=== PATIENT | male | born 1995 | race Caucasian/White ===

== ENCOUNTER 2021-06-07 20:30 | Emergency (ER) | payer SELFPAY ==
[~2021-06-07] VITALS: Ht 180.3 cm; Wt 95.3 kg
[~2021-06-07 20:30] MED LIST: ACYC800T PO; ALBU8.5H2 IH; CIPR-225 PO; FLUT1DIS26 INH; HSCO125 SL; HYDR-4226 PO; METR500T PO; MMT17NA; MONT5TAB11 PO; ONDAN4ODT SL; SULF-222 PO; SULF1TAB38 PO
[2021-06-07 20:35] VITALS: BP 150/95
[2021-06-07] MEDS ORDERED: LIDOCAINE 1% INJ 20 ML VIAL INJ ONE (20:45)
--- NOTE | 2021-06-07 20:46 | ED Upper Extremity ---
General Stated Complaint: L HAND LAC Source: patient Exam Limitations: no limitations History of Present Illness Date Seen by Provider: Jun 07, 2021 Time Seen by Provider: 20:36 Initial Comments Here with left pinky laceration lateral aspect that is a flap involving the distal phalanx area. States that continue to bleed so he presented for further evaluation. States he was slicing potatoes at the time and his finger on the slicer. Denies other injury. Believes his tetanus is up-to-date 4 years ago. Onset: this evening Severity: mild Pain/Injury Location: left 5th finger Method of Injury: incised Modifying Factors: Improves With Immobilization; Worse With Movement Allergies and Home Medications Allergies Coded Allergies: No Known Drug Allergies (Verified , 03/18/09) Patient Home Medication List Home Medication List Reviewed: Yes Ciprofloxacin HCl (Cipro) 500 Mg Tablet, 500 MG PO BID Prescribed by: DALE TIRADO on 03/09/15 1058 Hydrocodone/Acetaminophen (Hydrocodone/Acetaminophen 5 MG/325 MG TAB) 1 Each Tablet, 1 EACH PO Q4H PRN for PAIN Prescribed by: DALE TIRADO on 03/09/15 1058 Metronidazole (Flagyl) 500 Mg Tablet, 500 MG PO TID Prescribed by: DALE TIRADO on 03/09/15 1058 Sulfamethoxazole/Trimethoprim (Bactrim Ds Tablet) 1 Each Tablet, 1 EACH PO BID, (Reported) Entered as Reported by: BRISEYDA DIANA on 03/09/15 0929 Review of Systems Constitutional: no symptoms reported Respiratory: no symptoms reported Cardiovascular: no symptoms reported Musculoskeletal: No joint pain; muscle pain Skin: see HPI; No change in color; lesions (Flap laceration left fifth finger distal lateral) Psychiatric/Neurological: Denies Numbness, Denies Tingling Past Pnhnskd-Rubean-Bouikd Hx Patient Social History Tobacco Use?: No Substance use?: No Alcohol Use?: No Immunizations Up To Date Tetanus Booster (TDap): Less than 5yrs Past Medical History Surgeries: No Respiratory: No Asthma Cardiac: No Neurological: No Genitourinary: No Musculoskeletal: Yes Chronic Back Pain Family Medical History Reviewed Nursing Family Hx No Pertinent Family Hx Physical Exam Vital Signs Vital Signs - First Documented 06/07/21 20:35 Temp 37.2 Pulse 104 Resp 20 B/P (MAP) 150/95 (113) Pulse Ox 98 O2 Delivery Room Air Capillary Refill : Height, Weight, BMI Height: 5'11" Weight: 184lbs. oz. 83.400105yj; BMI Method:Stated General Appearance: WD/WN, no apparent distress Cardiovascular: regular rate, rhythm, no murmur Respiratory: lungs clear, normal breath sounds Hand: Left, laceration (Distal fifth finger lateral aspect flap laceration proximal to distal is approximately 3 cm in total length with bleeding controlled with pressure. Distal sensation and circulation intact) Neurologic/Psychiatric: alert, oriented x 3 Skin: normal color, warm/dry, other (Laceration as above) Procedures/Interventions Wound Location: Upper Extremities Other Wound Location Left fifth finger Wound Length (cm): 3 Wound's Depth, Shape: superficial, flap Wound Explored: contaminated Irrigated w/ Saline (ccs): 100 Betadine Prep?: Yes Anesthesia: 1% Lidocaine (Digital block with some local infiltration) Volume Anesthetic (ccs): 4 Wound Debrided: minimal Suture: Ethlion Suture Size: 5-0 Number of Sutures: 7 Layer Closure?: 1 Number Deep Layer Sutures: 0 Sterile Dressing Applied?: Yes Progress Suture repair with simple interrupted sutures after digital block and copious cleaning including soaking and irrigation. Closed well. Covered with antibiotic ointment and dressing and secured with tube gauze. Patient tolerated procedure well with no complications. Progress/Results/Core Measures Results/Orders My Orders Orders - GWEN RIVERO MD Lidocaine 1% Inj 20 Ml (Xylocaine 1% Inj (06/07/21 20:45) Medications Given in ED Current Medications Medications Dose Ordered Sig/May Route Start Time Stop Time Status Last Admin Dose Admin Lidocaine HCl 20 ml ONCE ONCE INJ 06/07/21 20:45 06/07/21 20:47 DC 06/07/21 20:58 20 ML Vital Signs/I&O 06/07/21 20:35 Temp 37.2 Pulse 104 Resp 20 B/P (MAP) 150/95 (113) Pulse Ox 98 O2 Delivery Room Air Progress Progress Note : Progress Note Seen and evaluated. Laceration repair. Patient reports tetanus up-to-date. Discharged home with return precautions. Patient verbalized understanding of instructions and agreement with plan. Departure Impression Primary Impression: Laceration of left little finger Qualified Codes: S61.217A - Laceration without foreign body of left little finger without damage to nail, initial encounter Disposition: 01 HOME, SELF-CARE Condition: Improved Departure-Patient Inst. Decision time for Depature: 21:31 Referrals: ANJEL SCOTT MD (PCP/Family) Primary Care Physician Patient Instructions: Laceration Repair With Stitches ED Add. Discharge Instructions: Sutures out in 10 days. Return here for suture removal. Keep wound clean and dry. You may remove dressing after 2 days or earlier if it becomes soiled. Use antibiotic ointment and dressing over wound to protect the wound. Change that twice daily otherwise and if it becomes soiled. You may take Tylenol/acetaminophen and/or ibuprofen as needed for pain per package directions. Return for worse pain, foul-smelling drainage, red streaks up the hand, fever or other concerns as needed. GWEN RIVERO MD Jun 07, 2021 20:46
== END 2021-06-07 22:05 | disposition home or self-care (01) ==
LOC: EDUNIT# 20:30 → ER 20:33
DX: S61.217A Laceration without foreign body of left little finger without damage to nail, initial encounter (principal); W27.8XXA Contact with other nonpowered hand tool, initial encounter
CPT/HCPCS: 99282